=== PATIENT | female | born 1975 | race Caucasian/White ===

== ENCOUNTER 2024-01-26 18:51 | Emergency (ER) | payer OTHER ==
[~2024-01-26] VITALS: Ht 154.9 cm; Wt 60.3 kg
[2024-01-26] MEDS ORDERED: HYDROCODONE/APAP 10/325MG TABLET ONE (19:11)
[2024-01-26] MEDS: HYDROCODONE/APAP 10/325MG TABLET PO ONE (19:21)
[2024-01-26] MEDS ORDERED: HYDR-4275 PO (19:56)
[2024-01-26 20:40] VITALS: BP 122/60; TEMP 98.2; O2SAT 98
[2024-01-26] MEDS ORDERED: HYDR-4303 PO (21:28)
== END 2024-01-26 20:40 | disposition home or self-care (01) ==
LOC: ER 18:55
DX: S52.692A Other fracture of lower end of left ulna, initial encounter for closed fracture (principal); V43.52XA Car driver injured in collision with other type car in traffic accident, initial encounter; Y93.89 Activity, other specified; Y92.488 Other paved roadways as the place of occurrence of the external cause; Y99.8 Other external cause status
CPT/HCPCS: 73090-TC; 73110; 73130-TC